=== PATIENT | female | born 1945 | race Caucasian/White ===

== ENCOUNTER 2018-03-17 16:14 | Emergency (ER) | payer BC, MEDICARE ==
[~2018-03-17] VITALS: Ht 152.4 cm; Wt 65.0 kg
[~2018-03-17 16:14] MED LIST: ALLERGY10 M1 PO; ANTIVERT OR; CIPRO500 MG OR; CORTISPORIN OTI10 M1 OT; DARVOCET-N 100100 MG OR; ENALAPRIL20 MG PO; HYDROCHLOROTH12.5 MG OR; LOPRESSOR50 MG OR; Levaquin OR; MOTRIN800 MG OR; PROMETHAZINE25 MG OR; VASOTEC10 MG OR; ZITHROMAX250 MG PO; ZOFRAN ODT4 MG OR; ZOFRAN4 MG OR
[2018-03-17 16:45] LABS: IMMATURE GRANULOCYTES 0.4 % (0.0-5.0); MEAN CELL VOLUME 88.7 fL CALC (80.0-100.0); MEAN CORPUSCULAR HGB 28.9 pG CALC (26.0-32.0); MEAN CORPUSCULAR HGB CONC 32.5 g/L CALC (32.0-36.0); NEUT# 9.02 thou/uL (2.00-7.15); RED BLOOD COUNT 4.26 mill/uL (4.20-5.60); RED CELL DISTRI WIDTH 13.3 % (11.5-15.5)
[2018-03-17 16:46] LABS: HEMATOCRIT 37.8 % (37.0-47.0); HEMOGLOBIN 12.3 g/dl (12.0-16.0)
[2018-03-17 16:58] LABS: ALBUMIN 4.4 g/dL (3.2-5.0); BILIRUBIN, TOTAL 0.8 mg/dL (0.0-1.4); CREATININE 1.1 mg/dL (0.5-1.0); POTASSIUM 3.6 mmol/l (3.5-5.1); TOTAL PROTEIN 7.5 g/dL (6.3-8.2)
[2018-03-17] MEDS ORDERED: ANTIVERT PO ×2 (18:25→19:07)
[2018-03-17] MEDS ORDERED: ONDANSETRON4 MG PO ×2 (18:25→19:07)
[2018-03-17] MEDS ORDERED: ZITHROMAX250 MG PO ×2 (18:25→19:07)
[2018-03-17 19:01] VITALS: BP 128/59
== END 2018-03-17 19:59 | disposition home or self-care (01) | DRG 153 ==
LOC: ED 16:14
PROVIDERS: Emergency Medicine
DX: H66.91 Otitis media, unspecified, right ear (principal); R42 Dizziness and giddiness; E86.0 Dehydration; R11.2 Nausea with vomiting, unspecified; H92.01 Otalgia, right ear